=== PATIENT | female | born 1950 | race Caucasian/White ===

== ENCOUNTER → 2016-07-31 | Outpatient (CLI) | payer OTHER | LOC: FIMAGING 11:55 | DX: Z12.31 Encounter for screening mammogram for malignant neoplasm of breast (principal) | CPT/HCPCS: G0202 ==

== ENCOUNTER 2017-06-09 14:17 | Emergency (ER) | payer OTHER ==
[2017-06-09 14:34] VITALS: RESP 18; O2SAT 97
--- NOTE | 2017-06-09 16:17 | EDPHY ---
H & P Time Seen by Provider: 06/09/17 15:36 HPI/ROS: HPI DVT and left lower extremity. 67-year-old female by private vehicle with her . This patient reports that last she was driving to [place] when she noticed some pain in her left mid upper calf area. She reports that when she drove home yesterday the pain was worse. She was seen by her primary care physician, Dr. Vásquez, who noticed that her left lower extremity was slightly more swollen than the right lower extremity. A lower extremity ultrasound was obtained. This was significant for a calf DVT. She was sent to the emergency department by Dr. Vásquez for treatment. She denies any other associated signs or symptoms. ROS: Constitutional: No fever, no chills. No weakness. Eyes: No discharge. No changes in vision. ENT: No sore throat. No nasal congestion or rhinorrhea. Respiratory: No cough. No shortness of breath. Cardiac: No chest pain, no palpitations. Gastrointestinal: No abdominal pain, no vomiting, no diarrhea. Genitourinary: No hematuria. No dysuria or increased frequency with urination. Musculoskeletal: No back pain. No neck pain. As above. Skin: No rashes. Neurological: No headache. No focal weakness or altered sensation. Past medical history: Hypertension, hyperlipidemia, coronary artery disease, borderline diabetic. As above. Social history: Nonsmoker. Here with her . No alcohol. Physical Exam: General Appearance: Alert, no distress. This patient is responding to questions appropriately and in full sentences. This patient appears well- hydrated and well-nourished. Eyes: Pupils equal and round no pallor or injection. No lid edema, erythema or injection. Respiratory: There are no retractions, lungs are clear to auscultation with good air movement bilaterally. Cardiovascular: Regular rate and rhythm. No murmur. Gastrointestinal: Abdomen is soft and nontender, no masses, bowel sounds normal. No focal tenderness at McBurney's point. No Hernandez sign. Neurological: Motor sensory function is grossly intact. Cranial nerves are normal. Skin: Warm and dry, no rashes. Musculoskeletal: Neck is supple and nontender. Extremities: The left lower extremity is slightly more swollen at the mid calf than the right lower extremity. All joints range without pain or impingement. Psychiatric: No agitation. No depression. Database: EKG: Imaging: Left lower extremity ultrasound to evaluate for DVT: Significant for short- segment DVT involving 1 of the 2 posterior tibial veins in the calf. Please see radiologist report for further details. Procedures: Emergency department course: Vital signs reviewed. She is moderately hypertensive. Vital signs otherwise normal. I spoke with Dr. Vásquez at 4:00 p.m.. Her case was discussed. I explained I would likely start her on Xarelto. He was in agreement with this. He asked that we provide her with follow-up referral with Dr. Pruitt of Hematology. This plan was discussed with the patient and her . They are in agreement. 4:20 p.m., patient's renal function has been normal, creatinine of 0.6 in July of 2016. Discussed dosing protocol with pharmacist. Patient will be given 15 mg in the emergency department initially followed by starter pack dosing of 15 mg twice daily for 21 days followed by 20 mg daily thereafter. 4:30 p.m., patient re-evaluated. Resting comfortably at this time. Discussed plan for starting her on Xarelto. She and her endorse. Patient given 15 mg in the emergency department. She will be given the initial starter prescription for the 1st 21 days. I discussed follow-up with her primary care physician as well as Hematology. All of her questions were answered. Return to emergency department precautions discussed. She was discharged in good condition. Differential Diagnosis: The differential diagnosis on this patient includes but is not limited to left lower extremity DVT. Cellulitis, calf muscle strain, Faust cyst unlikely. This represents a partial list of diagnoses considered. These considerations are based on history, physical exam, past history, reassessment and diagnostic testing. Smoking Status: Never smoked Constitutional: Initial Vital Signs Temperature (C) 36.9 C 06/09/17 14:31 Heart Rate 77 06/09/17 14:31 Respiratory Rate 18 06/09/17 14:31 Blood Pressure 175/95 H 06/09/17 14:31 O2 Sat (%) 97 06/09/17 14:31 O2 Delivery Mode Room Air Allergies/Adverse Reactions: No Known Allergies Allergy (Verified 06/09/17 14:31) Home Medications: Medication Instructions Recorded Aspirin EC [Aspirin EC 81 mg (*)] 81 mg PO DAILY 06/09/17 Atorvastatin Calcium [Lipitor 40 40 mg PO 06/09/17 mg (*)] Losartan Potassium [Cozaar 25 mg 25 mg PO 06/09/17 (*)] Rivaroxaban [Xarelto 15mg (*)] 15 mg PO BID #41 tab 06/09/17 Medical Decision Making - Data Points Medications Given: Discontinued Medications Rivaroxaban (Xarelto) 15 mg PO EDNOW ONE Stop: 06/09/17 16:22 Last Admin: 06/09/17 16:28 Dose: 15 mg Departure - Departure Disposition: Home, Routine, Self-Care Clinical Impression: Left leg DVT Condition: Good Instructions: Deep Vein Thrombosis (ED), Deep Vein Thrombosis Prevention (ED) Additional Instructions: Read and follow provided instructions. Follow-up with your primary care physician or with [employer] Dr. Pruitt, in 1-2 days for re-evaluation and ongoing management of your DVT. Take medication as prescribed only. The dosing of this medication is 15 mg twice daily for the 1st 21 days then 20 mg once daily thereafter. Return to the emergency department for worsening calf pain, shortness of breath , chest pain, fever or other serious concerns. Referrals: Donya Worley MD [Primary Care Provider] - As per Instructions Allan Pruitt MD [Medical Doctor] - As per Instructions Prescriptions: Rivaroxaban [Xarelto 15mg (*)] 15 mg PO BID #41 tab
[2017-06-09] MEDS ORDERED: RIVAROXABAN 15 MG TAB PO ONE (16:21)
[2017-06-09 16:37] VITALS: BP 167/88; PULSE 70; TEMP 98.1
== END 2017-06-09 16:37 | disposition home or self-care (01) ==
LOC: EDSTATUS 14:17
DX: I82.402 Acute embolism and thrombosis of unspecified deep veins of left lower extremity (principal); I10 Essential (primary) hypertension; I25.10 Atherosclerotic heart disease of native coronary artery without angina pectoris; Z79.82 Long term (current) use of aspirin; Z79.01 Long term (current) use of anticoagulants

== ENCOUNTER → 2017-08-01 | Outpatient (CLI) | payer OTHER | LOC: FIMAGING 10:51 | PROVIDERS: ATTEND Family Medicine | DX: Z12.31 Encounter for screening mammogram for malignant neoplasm of breast (principal) ==

== ENCOUNTER → 2017-10-20 | Outpatient (CLI) | payer OTHER | LOC: BMCIMAGING 09:32 | PROVIDERS: ATTEND Nurse Practitioner | DX: M79.662 Pain in left lower leg (principal); Z86.718 Personal history of other venous thrombosis and embolism ==

== ENCOUNTER → 2018-08-06 | Outpatient (CLI) | payer OTHER | LOC: FIMAGING 12:29 | PROVIDERS: ATTEND Family Medicine | DX: M16.11 Unilateral primary osteoarthritis, right hip (principal); M25.551 Pain in right hip; M76.01 Gluteal tendinitis, right hip; M51.36 Other intervertebral disc degeneration, lumbar region ==